=== PATIENT | female | born 1995 | race Caucasian/White ===

== ENCOUNTER 2019-12-08 11:31 | Emergency (ER) | payer OTHER ==
[~2019-12-08] VITALS: Ht 170.2 cm; Wt 68.0 kg
[2019-12-08] MEDS ORDERED: LEXAPRO20 MG PO (11:36)
[2019-12-08] MEDS ORDERED: KEFLEX500 M1 PO (13:57)
[2019-12-08] MEDS ORDERED: MUPIROCIN15 GM TOP (14:03)
[2019-12-08 14:30] VITALS: BP 122/62
== END 2019-12-08 14:31 | disposition home or self-care (01) ==
LOC: M.ERS 11:31
DX: S01.501A Unspecified open wound of lip, initial encounter (principal); W54.0XXA Bitten by dog, initial encounter; Y93.89 Activity, other specified; Y92.89 Other specified places as the place of occurrence of the external cause; Y99.8 Other external cause status